=== PATIENT | female | born 1995 | race African-American/Black ===

== ENCOUNTER 2024-06-26 18:31 | Emergency (ER) | payer OTHER ==
[2024-06-26] MEDS ORDERED: Ketorolac Tromethamine 30 MG (1 mL) VIAL ONE (19:41)
[2024-06-26] MEDS ORDERED: Cyclobenzaprine 10 MG TAB ONE (19:52)
== END 2024-06-26 21:43 | disposition home or self-care (01) ==
LOC: CSHERS 18:31
DX: S13.4XXA Sprain of ligaments of cervical spine, initial encounter (principal); S50.12XA Contusion of left forearm, initial encounter; E11.9 Type 2 diabetes mellitus without complications; Z87.891 Personal history of nicotine dependence; V89.2XXA Person injured in unspecified motor-vehicle accident, traffic, initial encounter
CPT/HCPCS: 71045; 72125; 96372; J1885

== ENCOUNTER 2025-08-04 08:24 | Outpatient (CLI) | payer OTHER | END 2025-08-04 08:25 | disposition home or self-care (01) | LOC: CSHSLEEP 08:24 | PROVIDERS: ATTEND Student in an Organized Health Care Education/Training Program | DX: G47.33 Obstructive sleep apnea (adult) (pediatric) (principal); R53.83 Other fatigue; E11.9 Type 2 diabetes mellitus without complications; G47.00 Insomnia, unspecified; E66.9 Obesity, unspecified; Z68.43 Body mass index [BMI] 50.0-59.9, adult; F41.9 Anxiety disorder, unspecified; F32.A Depression, unspecified | CPT/HCPCS: 95810 ==